=== PATIENT | male | born 1995 | race Two or more races ===

== ENCOUNTER 2023-12-13 00:26 | Emergency (ER) | payer OTHER ==
[~2023-12-13] VITALS: Ht 175.3 cm; Wt 84.8 kg
[~2023-12-13 00:26] MED LIST: VISTARIL25 MG PO
[2023-12-13] MEDS ORDERED: NEURONTIN300 MG PO (03:59)
== END 2023-12-13 04:04 ==
LOC: ER 00:28
DX: R20.2 Paresthesia of skin (principal); M79.602 Pain in left arm; R00.2 Palpitations